=== PATIENT | male | born 1965 | race Caucasian/White ===

== ENCOUNTER 2019-03-22 17:38 | Inpatient (IN) ==
[2019-03-22] MEDS ORDERED: IOPAMIDOL 100 ML BOTTLE IV ONE (17:39)
[2019-03-22] MEDS ORDERED: ONDANSETRON 4 MG/2 ML VIAL IV ONE (18:55)
[2019-03-22] MEDS ORDERED: 0.9 % SODIUM CHLORIDE 1,000 ML IV ONE (18:55)
--- NOTE | 2019-03-22 18:58 | Emergency Department Note ---
Abdominal Pain HPI - General Chief Complaint: Abdominal Pain Stated Complaint: Right upper Quad Pain Time Seen by Provider: 03/22/19 18:51 Mode of arrival: ambulatory - History of Present Illness HPI Narrative: Patient is a 53-year-old male comes into the emergency department this evening with a complaint of right upper quadrant pain that began yesterday and slowly has increased in intensity. He describes the pain in the right upper quadrant is tight and pain is aggravated with palpation and when he gets the hiccups. He reports that he felt warm at home but does not think that he had any fevers. He did have some nausea and vomited once last night. The pain started getting worse throughout the day so he decided to come in the emergency department. He denies any constipation, diarrhea, melena, or hematochezia. He has not had any urinary frequency, urgency, dysuria, or hesitancy. Has not had any chest pain, shortness breath, or difficulty breathing. - Related Data Previous Rx's Medication Instructions Recorded Acyclovir [Zovirax] 800 mg PO 5XD #50 ml 02/17/15 Pramoxine HCl/Calamine [Calamine 177 ml TP QIDP PRN #1 vial 02/17/15 Medicated Lotion] oxyCODONE HCL/ACETAMINOPHEN 1 each PO QIDP PRN #30 tablet 02/17/15 [Percocet 5-325 mg Tablet] Allergies Allergy/AdvReac Type Severity Reaction Status Date / Time No Known Drug Allergies Allergy Verified 03/22/19 17:42 Review of Systems All systems ED: reviewed and negative except as stated. Abdominal Pain PMH - Past Medical History Medical history: Reports: no medical history - Social History Smoking status: Current every day smoker Physical Exam Limitations: no limitations General appearance: alert, in no apparent distress Head: atraumatic, normocephalic Eye: Present: normal appearance, PERRL, EOMI. Absent: scleral icterus, conjunctival injection ENT: Present: normal oropharynx, mucous membranes moist Neck: Present: trachea midline. Absent: lymphadenopathy, thyromegaly Chest: Present: normal inspection, symmetric chest wall rise. Absent: tenderness Respiratory: Present: normal lung sounds bilaterally. Absent: respiratory distress, rales/crackles, wheezes, stridor, accessory muscle use, prolonged expiratory phase Cardiovascular: Present: regular rate, normal rhythm. Absent: systolic murmur, diastolic murmur Abdominal: Present: soft, tenderness (right upper quadrant), normal bowel sounds, Bai's sign. Absent: distention, guarding, rebound, rigidity, hernia Extremities: Present: normal inspection, full ROM. Absent: pedal edema, pretibial edema, calf tenderness Back: Absent: CVA tenderness (R), CVA tenderness (L), spinous process tenderness Neurological: Present: alert, oriented X3 Psychiatric: Present: normal affect, normal mood Skin: Present: warm, dry, intact, normal color Course - Reevaluation(s) Time: 22:08 (Patient has elevated white count and proceeded with CT scan of abdomen for further evaluation with the pain in the right lower quadrant to rule out appendicitis. Patient received a liter of normal saline and morphine for pain and ondansetron for nausea. He is resting comfortably at this time. Dr. Castillo will assume care 2200 due to shift change.) Vital Signs Temperature 97.6 F 03/22/19 17:39 Pulse Rate 116 H 03/22/19 17:39 Respiratory Rate 20 03/22/19 17:39 Blood Pressure 125/91 03/22/19 17:39 Pulse Oximetry (%) 96 03/22/19 17:39 Temperature 97.6 F 03/22/19 17:39 Pulse Rate 116 H 03/22/19 17:39 Respiratory Rate 20 03/22/19 17:39 Blood Pressure 125/91 03/22/19 17:39 Pulse Oximetry (%) 96 03/22/19 17:39 Abdominal Pain - Lab Data Result diagrams: 03/22/19 19:14 03/22/19 19:14 Lab Results 03/22/19 03/22/19 Range/Units 19:14 19:14 WBC 14.8 H (4.5-11.0) K/mcL RBC 5.69 (4.50-5.90) M/mcL Hgb 17.3 H (13.5-16.5) g/dL Hct 52.5 (41.0-55.0) % MCV 92.3 (80.0-100.0) fL MCH 30.5 (26.0-34.0) pg MCHC 33.0 (31.0-36.0) g/dL RDW 12.8 (11.5-14.5) % Plt Count 322 (140-440) K/mcL MPV 8.0 (7.4-10.4) fL Gran % 90.8 H (38.0-78.0) % Lymph % (Auto) 4.5 L (15.5-49.0) % [place] % (Auto) 4.4 (1.0-12.0) % Eos % (Auto) 0 (0.0-7.0) % Baso % (Auto) 0.3 (0.0-2.0) % Gran # 13.4 H (1.8-8.0) K/mcL Lymph # (Auto) 0.7 L (1.5-4.8) K/mcL [place] # (Auto) 0.7 (0.1-0.9) K/mcL Eos # (Auto) 0 (0.0-0.7) K/mcL Baso # (Auto) 0 (0.0-0.3) K/mcL Sodium 136 (133-145) mmol/L Potassium 4.0 (3.3-5.1) mmol/L Chloride 92 L (96-108) mmol/L Carbon Dioxide 25 (22-30) mmol/L Anion Gap 19.0 H (8-16) BUN 14 (6-20) mg/dl Creatinine 1.2 (0.7-1.2) mg/dl GFR Calculation 68 Glucose 187 H (70-105) mg/dL Calcium 9.7 (8.6-10.4) mg/dl Total Bilirubin 0.5 (0.0-1.0) mg/dL AST 13 (0-37) U/l ALT 16 (0-40) U/l Alkaline Phosphatase 98 (39-117) U/L Total Protein 8.5 H (5.9-8.4) gm/dL Albumin 4.7 (3.2-5.2) gm/dL Globulin 3.8 H (2.2-3.7) gm/dL Albumin/Globulin Ratio 1.2 (1.0-2.3) Lipase 17 (7-60) U/L Disposition Pt seen by PRESCHOOL LEAD TEACHER/PA only: No (Dr. Castillo) Clinical Impression: Abdominal pain Disposition: Still a Patient
[2019-03-22 20:09] LABS: Basophils # (Auto) 0 K/mcL (0.0-0.3); Basophils % (Auto) 0.3 % (0.0-2.0); Eosinophils # (Auto) 0 K/mcL (0.0-0.7); Eosinophils % (Auto) 0 % (0.0-7.0); Granulocytes % (Auto) 90.8 % (38.0-78.0); Hematocrit 52.5 % (41.0-55.0); Hemoglobin 17.3 g/dL (13.5-16.5); Lymphocytes # (Auto) 0.7 K/mcL (1.5-4.8); Lymphocytes % (Auto) 4.5 % (15.5-49.0); Mean Cell Volume 92.3 fL (80.0-100.0); Monocytes # (Auto) 0.7 K/mcL (0.1-0.9); Monocytes % (Auto) 4.4 % (1.0-12.0); Platelet Count 322 K/mcL (140-440); RBC 5.69 M/mcL (4.50-5.90); Red Cell Distribution Width 12.8 % (11.5-14.5); WBC 14.8 K/mcL (4.5-11.0)
[2019-03-22 20:31] LABS: ALT/SGPT 16 U/l (0-40); AST/SGOT 13 U/l (0-37); Albumin 4.7 gm/dL (3.2-5.2); Albumin/Globulin Ratio 1.2 (1.0-2.3); Alkaline Phosphatase 98 U/L (39-117); Bilirubin,Total 0.5 mg/dL (0.0-1.0); Blood Urea Nitrogen 14 mg/dl (6-20); Calcium 9.7 mg/dl (8.6-10.4); Carbon Dioxide 25 mmol/L (22-30); Globulin 3.8 gm/dL (2.2-3.7); Glomerular Filtration Rate 68; Glucose 187 mg/dL (70-105)
[2019-03-22 20:42] LABS: Chloride 92 mmol/L (96-108)
[2019-03-22] MEDS ORDERED: PIPERACILLIN SODIUM/TAZOBACTAM 3.375 GM in DEXTROSE 5% IN WATER 50 ML IV ONE (22:24)
[2019-03-22] MEDS ORDERED: LACTATED RINGERS 1,000 ML IV ONE (22:58)
[2019-03-23] MEDS: 0.9 % SODIUM CHLORIDE 1,000 ML IV SCH ×3 (00:35→23:44)
[2019-03-23] MEDS ORDERED: HYDROmorphone 2 MG/ML VIAL IV PRN ×2 (01:14→14:16)
[2019-03-23] MEDS ORDERED: PROMETHAZINE 25 MG/ML VIAL IV PRN ×2 (01:15→15:37)
[2019-03-23] MEDS ORDERED: ACETAMINOPHEN 1,000 MG/100 ML BOTTLE IV ONE ×3 (01:43→14:16)
[2019-03-23] MEDS: ACETAMINOPHEN 1,000 MG/100 ML BOTTLE IV SCH ×4 (02:04→23:45)
[2019-03-23] MEDS: PIPERACILLIN SODIUM/TAZOBACTAM 3.375 GM in DEXTROSE 5% IN WATER 50 ML IV SCH ×4 (04:47→20:52)
[2019-03-23] MEDS ORDERED: SCOPOLAMINE 1 PATCH PATCH TOPICAL PRN ×2 (06:41→08:00)
[2019-03-23] MEDS ORDERED: IPRATROPIUM/ALBUTEROL 3 ML AMPUL.NEB NEB PRN ×3 (06:41→14:16)
--- NOTE | 2019-03-23 07:35 | Emergency Department Note ---
Abdominal Pain HPI - General Chief Complaint: Abdominal Pain Stated Complaint: Right upper Quad Pain Time Seen by Provider: 03/22/19 18:51 Mode of arrival: ambulatory Limitations: no limitations - Related Data Home Medications Medication Instructions Recorded Confirmed No Known Home Meds 03/22/19 03/22/19 Allergies Allergy/AdvReac Type Severity Reaction Status Date / Time No Known Drug Allergies Allergy Verified 03/22/19 17:42 Abdominal Pain PMH - Past Medical History Medical history: Reports: no medical history - Social History Smoking status: Light tobacco smoker Physical Exam Limitations: no limitations General appearance: alert, in no apparent distress Course Vital Signs Temperature 97.6 F 03/22/19 17:39 Pulse Rate 116 H 03/22/19 17:39 Respiratory Rate 20 03/22/19 17:39 Blood Pressure 125/91 03/22/19 17:39 Pulse Oximetry (%) 96 03/22/19 17:39 Temperature 97.7 F 03/23/19 07:08 Pulse Rate 95 H 03/23/19 03:30 Respiratory Rate 20 03/23/19 07:08 Blood Pressure 126/84 03/23/19 07:08 Pulse Oximetry (%) 97 03/23/19 07:08 Abdominal Pain - MDM Narrative Medical decision making narrative: This patient CT scan showed a perforated appendix and he was admitted to the hospital for Dr. Rice. We gave him Zosyn IV. - Lab Data Lab results reviewed: Yes I reviewed the patient's lab results. Result diagrams: 03/22/19 19:14 03/22/19 19:14 Lab Results 03/22/19 03/22/19 Range/Units 19:14 19:14 WBC 14.8 H (4.5-11.0) K/mcL RBC 5.69 (4.50-5.90) M/mcL Hgb 17.3 H (13.5-16.5) g/dL Hct 52.5 (41.0-55.0) % MCV 92.3 (80.0-100.0) fL MCH 30.5 (26.0-34.0) pg MCHC 33.0 (31.0-36.0) g/dL RDW 12.8 (11.5-14.5) % Plt Count 322 (140-440) K/mcL MPV 8.0 (7.4-10.4) fL Gran % 90.8 H (38.0-78.0) % Lymph % (Auto) 4.5 L (15.5-49.0) % [place] % (Auto) 4.4 (1.0-12.0) % Eos % (Auto) 0 (0.0-7.0) % Baso % (Auto) 0.3 (0.0-2.0) % Gran # 13.4 H (1.8-8.0) K/mcL Lymph # (Auto) 0.7 L (1.5-4.8) K/mcL [place] # (Auto) 0.7 (0.1-0.9) K/mcL Eos # (Auto) 0 (0.0-0.7) K/mcL Baso # (Auto) 0 (0.0-0.3) K/mcL Sodium 136 (133-145) mmol/L Potassium 4.0 (3.3-5.1) mmol/L Chloride 92 L (96-108) mmol/L Carbon Dioxide 25 (22-30) mmol/L Anion Gap 19.0 H (8-16) BUN 14 (6-20) mg/dl Creatinine 1.2 (0.7-1.2) mg/dl GFR Calculation 68 Glucose 187 H (70-105) mg/dL Calcium 9.7 (8.6-10.4) mg/dl Total Bilirubin 0.5 (0.0-1.0) mg/dL AST 13 (0-37) U/l ALT 16 (0-40) U/l Alkaline Phosphatase 98 (39-117) U/L Total Protein 8.5 H (5.9-8.4) gm/dL Albumin 4.7 (3.2-5.2) gm/dL Globulin 3.8 H (2.2-3.7) gm/dL Albumin/Globulin Ratio 1.2 (1.0-2.3) Lipase 17 (7-60) U/L - Radiology Data Radiology results reviewed: Yes I reviewed the patient's radiology results. Disposition Pt seen by YOUTH ADVOCATE/PA only: No Clinical Impression: Abdominal pain, Acute appendicitis Disposition: Xfer As Inpt ([facility])
--- NOTE | 2019-03-23 08:49 | Cat Scan Report ---
History: Right-sided abdominal pain with leukocytosis TECHNIQUE: The patient was imaged following oral and intravenous contrast from the diaphragm to the symphysis pubis. Sagittal and coronal reformats were created. The radiation exposure was limited using dose reduction technology. FINDINGS: There is dependent atelectasis posteriorly in both lung bases. Small hiatus hernia is present. The liver and spleen are normal in size and homogeneous. Gallbladder is partially contracted but appears normal and the bile ducts are nondilated. The pancreas and adrenals are normal. There are small cortical scars filled with fat posteriorly in the upper poles of both kidneys, left larger than right. There is no evidence renal mass, calculus, hydronephrosis or acute pyelonephritis. The aorta is normal in caliber. Small amount calcified plaque is present in the distal aorta. The appendix is severely distended and inflamed. Measures up to 2.2 cm transverse dimension and contains fecal material. The wall is thickened and there is severe inflammation surrounding the appendix. The inflammation extends to the adjacent posterior wall of the cecum and ascending colon and to the terminal ileum. This is not causing bowel obstruction. However, there has been perforation. Small bubbles of free intraperitoneal air are present and there is free fluid deep in the pelvis. No abscess has developed. There are several noninflamed diverticula in the descending and sigmoid colon but without evidence of acute diverticulitis. Urinary bladder is incompletely distended. There is mild uniform thickening of the wall of the bladder, which may be related to incomplete distention. The prostate is mildly enlarged. IMPRESSION: Acute appendicitis with perforation Interpreted and Authenticated by: Gabriel Travis 03/23/19
[2019-03-23 08:50] LABS: INR 1.2 (0.9-1.1); Prothrombin Time 15.4 sec (11.9-14.5)
[2019-03-23 08:50] LABS: Appearance,Urine CLEAR; Bacteria,Urine 0 /hpf (0); Bilirubin,Urine NEG (NEG); Color,Urine YELLOW; Culture Indicated,Urine NO; Glucose,Urine (UA) NEGATIVE (NEG); Ketones,Urine NEG (NEG); Leukocyte Esterase,Urine NEG /uL (NEG); Nitrate,Urine NEG (NEG); Protein,Urine 30 mg/dL (NEG); Specific Gravity,Urine 1.034 (1.000-1.035); Urine Blood NEG mg/dL (<0.03); Urine Hyaline Cast 1 /lpf (0-2); Urine RBC 0 /hpf (0-1); Urine Squamous Epithelial Cell < 1 /hpf (0-4); Urine WBC 3 /hpf (0-4); Urobilinogen,Urine NEG (NEG)
--- NOTE | 2019-03-23 08:57 | XRay Report ---
HISTORY: Preop for acute appendicitis FINDINGS: Thin band of discoid atelectasis is present above the right diaphragm. Lung volumes are relatively small. No free intra-abdominal air is detected.. The heart, mediastinum, lana and pleura are normal. IMPRESSION: Minor discoid atelectasis at the right lung base Interpreted and Authenticated by: Gabriel Travis 03/23/19
--- NOTE | 2019-03-23 09:08 | General Surg History&Physical ---
History of Present Illness Patient information: Note initiated : 03/23/19 at 9:06 am Service Date, if different from initiated Date: [] Patient: Cassius Haywood a 53 y/o M admitted on 03/22/19 for Right upper Quad Pain. Chief Complaint: [] HPI: Mr. Haywood is a 53 year old M admitted with acute appendicitis. The patient states that he developed a right lower quadrant pain on Tuesday. The pain persisted for a few hours and advancing to improve. Over the next couple days he had increasing pain over his lower abdomen with associated nausea and vomiting. On yesterday the pain became much worse and he finally sought attention in the emergency room. He was noted to have leukocytosis of over 14,[address] of the abdomen showed a dilated appendix with her appendiceal tissue fluid and free air compatible with probable perforated limits. He's been admitted and started on antibiotics and will have appendectomy later today. Review of Systems All systems PM: reviewed and no additional remarkable complaints except as stated (negative except as noted in the history present illness) Past History Past medical history: No chronic medical illnesses Past surgical history: No prior operative procedures Past family history: . Mother age 81 due to complications of stroke. Father alive age 83 with prostate cancer and melanoma. No siblings Past social history: Single Prior history of cigar smoking History of alcohol use. History of marijuana use Medications and Allergies Home Medications Medication Instructions Recorded Confirmed Type No Known Home Meds 03/22/19 03/22/19 History Allergies Allergy/AdvReac Type Severity Reaction Status Date / Time No Known Drug Allergies Allergy Verified 03/22/19 17:42 Exam Temp Pulse Resp BP Pulse Ox 97.7 F 95 H 20 126/84 97 03/23/19 07:08 03/23/19 03:30 03/23/19 07:08 03/23/19 07:08 03/23/19 07:08 - General physical appearance well developed, well nourished, no distress, moderate pain - Eyes PERRL, normal ocular movement - ENT normal pinna, normal nares, normal mucosa, no hearing loss, no congestion, poor longterm - Head Head exam IM: Present: atraumatic, normocephalic - Neck no masses, no bruits, trachea midline, no lymphadenopathy, no venous distension - Cardiovascular Cardiovascular exam IM: Present: normal rate and rhythm - Respiratory normal expansion, normal respiratory effort, clear to percussion, clear to auscultation - Abdomen Abdomen: Present: soft, tender, bowel sounds (good active bowel sounds), distended (mild abdominal distention; tenderness with guarding in right lower quadrant) Hernia: Present: none - Genitourinary Present: normal penis with no external lesions - Integumentary Present: no rash, no growths, no abnormal pigmentation - Neurologic Present: normal coordination, normal sensation - Musculoskeletal Present: normal gait, normal posture - Psychiatric Present: oriented to time, oriented to person, oriented to place, speech is normal, memory intact Assessment and Plan (1) Acute appendicitis with perforation and localized peritonitis Patient is counseled for laparoscopic appendectomy to be done later this morning. He is already on antibiotics and is adequately covered. Anticipate 2- 3 days of hospital stay. Status: Acute
[2019-03-23] MEDS ORDERED: ONDANSETRON 4 MG/2 ML VIAL IV ONE (13:11)
[2019-03-23] MEDS ORDERED: DEXAMETHASONE 10 MG/ML VIAL IV ONE (13:11)
[2019-03-23] MEDS ORDERED: SUCCINYLCHOLINE 20 MG/ML ML IV ONE (13:11)
[2019-03-23] MEDS ORDERED: GLYCOPYRROLATE 0.2 MG/ML VIAL IV ONE (13:11)
[2019-03-23] MEDS ORDERED: fentaNYL 100 MCG/2 ML VIAL IV ONE (13:11)
[2019-03-23] MEDS ORDERED: MIDAZOLAM 2 MG/2 ML VIAL IV ONE (13:11)
[2019-03-23] MEDS ORDERED: PROPOFOL 200 MG/20 ML VIAL IV ONE (13:11)
[2019-03-23] MEDS ORDERED: KETAMINE 100 MG/ML ML IV ONE (13:11)
[2019-03-23] MEDS ORDERED: ROCURONIUM 10 MG/ML ML IV ONE (13:11)
[2019-03-23] MEDS ORDERED: NEOSTIGMINE 1 MG/ML VIAL IV ONE (13:11)
[2019-03-23] MEDS ORDERED: LIDOCAINE HCL/PF 100 MG/5 ML SYRINGE IV ONE (13:11)
[2019-03-23] MEDS ORDERED: MEPERIDINE 25 MG/ML SYRINGE IV PRN (14:16)
[2019-03-23] MEDS ORDERED: PROMETHAZINE 25 MG/ML VIAL IM PRN (14:16)
[2019-03-23] MEDS ORDERED: KETOROLAC 30 MG/ML VIAL IV PRN (14:16)
[2019-03-23] MEDS ORDERED: fentaNYL 100 MCG/2 ML VIAL IV PRN (14:16)
[2019-03-23] MEDS ORDERED: MEPERIDINE 50 MG/ML INJECTION IM PRN (14:16)
[2019-03-23] MEDS ORDERED: LACTATED RINGERS 1,000 ML IV SCH (14:30)
--- NOTE | 2019-03-23 14:55 | Brief Operative Note ---
Date of procedure: 03/23/19 Pre-op diagnosis: acute perforated appendicitis Post-op diagnosis: other (acute perforated appendicitis with abscess) Procedure: laparoscopic appendectomy with drainage of pelvic abscess Grafts/Implants: No (ed drain x2) Anesthesia: GETA Findings: abscess perforates at tip and at base with periappendiceal abscess and purulent fluid in pelvis Complications: none Surgeon: Nancy Rice Specimens Removed/Pathology: other (appendix) Condition: stable Disposition: PACU
[2019-03-24] MEDS: ACETAMINOPHEN 1,000 MG/100 ML BOTTLE IV SCH ×5 (00:16→23:27)
[2019-03-24] MEDS: PIPERACILLIN SODIUM/TAZOBACTAM 3.375 GM in DEXTROSE 5% IN WATER 50 ML IV SCH ×4 (01:23→19:00)
[2019-03-24] MEDS: 0.9 % SODIUM CHLORIDE 1,000 ML IV SCH ×3 (03:34→15:52)
[2019-03-24] MEDS: HYDROmorphone 2 MG/ML VIAL IV PRN ×3 (04:59→18:19)
[2019-03-24 06:37] LABS: Basophils # (Auto) 0.1 K/mcL (0.0-0.3); Basophils % (Auto) 0.4 % (0.0-2.0); Eosinophils # (Auto) 0 K/mcL (0.0-0.7); Eosinophils % (Auto) 0.1 % (0.0-7.0); Granulocytes % (Auto) 91.3 % (38.0-78.0); Hematocrit 40.8 % (41.0-55.0); Hemoglobin 14.1 g/dL (13.5-16.5); Lymphocytes # (Auto) 0.9 K/mcL (1.5-4.8); Lymphocytes % (Auto) 5.3 % (15.5-49.0); Mean Cell Volume 89.8 fL (80.0-100.0); Mean Corpuscular HGB Conc 34.5 g/dL (31.0-36.0); Mean Platelet Volume 8.4 fL (7.4-10.4); Monocytes # (Auto) 0.5 K/mcL (0.1-0.9); Monocytes % (Auto) 2.9 % (1.0-12.0); Platelet Count 274 K/mcL (140-440); RBC 4.54 M/mcL (4.50-5.90); Red Cell Distribution Width 12.3 % (11.5-14.5); WBC 16.2 K/mcL (4.5-11.0)
[2019-03-24 06:40] LABS: ALT/SGPT 13 U/l (0-40); AST/SGOT 13 U/l (0-37); Albumin 3.4 gm/dL (3.2-5.2); Alkaline Phosphatase 65 U/L (39-117); Bilirubin,Direct < 0.2 mg/dL (0.0-0.3); Bilirubin,Total 0.4 mg/dL (0.0-1.0); Blood Urea Nitrogen 9 mg/dl (6-20); Calcium 8.5 mg/dl (8.6-10.4); Carbon Dioxide 26 mmol/L (22-30); Chloride 96 mmol/L (96-108); Glomerular Filtration Rate 96; Glucose 133 mg/dL (70-105); Lactate Dehydrogenase 128 U/L (94-250); Triglycerides 119 mg/dl (<150); Uric Acid 2.2 mg/dL (2.5-8.0)
[2019-03-24 06:41] LABS: Albumin/Globulin Ratio 1.1 (1.0-2.3); Globulin 3.1 gm/dL (2.2-3.7); Phosphorous 1.9 mg/dL (2.7-4.5)
[2019-03-24] MEDS: METOCLOPRAMIDE 10 MG/2 ML VIAL IV SCH ×3 (11:47→23:27)
[2019-03-24] MEDS: POTASSIUM PHOSPHATE 40 MEQ in DEXTROSE 5% IN WATER 500 ML IV SCH ×2 (12:00→16:59)
--- NOTE | 2019-03-24 12:37 | General Surgery Progress Note ---
Subjective Patient reports: feels better, pain is less, tolerating a regular diet, flatus, no bowel movement, afebrile, other (patient still has hiccups) Narrative: Note initiated : 03/24/19 at 12:35 pm Service Date, if different from initiated Date: [] Patient: Cassius Haywood 53 y/o M admitted on 03/23/19 for Right upper Quad Pain. Chief Complaint: [patient is clinically improved. He has less discomfort and is afebrile. He has large volume serosanguineous drainage in both JPs. White blood count 16.2, hemoglobin 14.1, hematocrit 40.8, phosphorus 1.9.] Objective Temp Pulse Resp BP Pulse Ox 98.1 F 75 20 135/86 96 03/24/19 08:00 03/24/19 08:00 03/24/19 08:00 03/24/19 08:00 03/24/19 08:00 - Additional Data Intake & Output - Last 24 hours: Intake & Output 03/22/19 03/23/19 03/24/19 03/25/19 05:59 05:59 05:59 05:59 Intake Total 2078 6320 150 Output Total 500 3144 725 Balance 1578 3176 -575 Weight 175 lb 8 oz 177 lb 8 oz - General physical appearance well developed, well nourished, moderate distress, moderate pain - Eyes PERRL, normal ocular movement - ENT normal pinna, normal nares, normal mucosa, no hearing loss, no congestion - Neck no masses, no bruits, trachea midline, no lymphadenopathy, no venous distension - Respiratory normal expansion, normal respiratory effort, clear to auscultation - Cardiovascular Cardiovascular exam: Present: normal rate and rhythm (assessment possible perforated perforated appendectomy and possible irritation in that the Reglan will get things discomfort) - Abdomen tender ( moderate tenderness around port sites; good active bowel sounds), bowel sounds (present), surgical scars (none), masses (none) - Integumentary no rash, no growths, no abnormal pigmentation - Neurologic normal coordination, normal sensation - Musculoskeletal normal gait, normal posture - Psychiatric oriented to time, oriented to person, oriented to place, speech is normal, memory intact - Labs 03/24/19 04:55 03/24/19 04:55 Diabetes panel 03/24/19 Range/Units 04:55 Sodium 134 (133-145) mmol/L Potassium 3.6 (3.3-5.1) mmol/L Chloride 96 (96-108) mmol/L Carbon Dioxide 26 (22-30) mmol/L BUN 9 (6-20) mg/dl Creatinine 0.9 (0.7-1.2) mg/dl Glucose 133 H (70-105) mg/dL Calcium 8.5 L (8.6-10.4) mg/dl AST 13 (0-37) U/l ALT 13 (0-40) U/l Alkaline Phosphatase 65 (39-117) U/L Total Protein 6.5 (5.9-8.4) gm/dL Albumin 3.4 (3.2-5.2) gm/dL Triglycerides 119 (<150) mg/dl Calcium panel 03/24/19 Range/Units 04:55 Calcium 8.5 L (8.6-10.4) mg/dl Phosphorus 1.9 L (2.7-4.5) mg/dL Albumin 3.4 (3.2-5.2) gm/dL Pituitary panel 03/24/19 Range/Units 04:55 Sodium 134 (133-145) mmol/L Potassium 3.6 (3.3-5.1) mmol/L Chloride 96 (96-108) mmol/L Carbon Dioxide 26 (22-30) mmol/L BUN 9 (6-20) mg/dl Creatinine 0.9 (0.7-1.2) mg/dl Glucose 133 H (70-105) mg/dL Calcium 8.5 L (8.6-10.4) mg/dl Adrenal panel 03/24/19 Range/Units 04:55 Sodium 134 (133-145) mmol/L Potassium 3.6 (3.3-5.1) mmol/L Chloride 96 (96-108) mmol/L Carbon Dioxide 26 (22-30) mmol/L BUN 9 (6-20) mg/dl Creatinine 0.9 (0.7-1.2) mg/dl Glucose 133 H (70-105) mg/dL Calcium 8.5 L (8.6-10.4) mg/dl Total Bilirubin 0.4 (0.0-1.0) mg/dL AST 13 (0-37) U/l ALT 13 (0-40) U/l Alkaline Phosphatase 65 (39-117) U/L Total Protein 6.5 (5.9-8.4) gm/dL Albumin 3.4 (3.2-5.2) gm/dL Assessment and Plan (1) Acute appendicitis with perforation and localized peritonitis Status: Acute Assessment and plan: Patient is clinically improved. He was given Reglan 10 mg IV every 6 hours for his hiccups. He'll be continued on antibiotics. Current Visit: Yes - Time Spent With Patient Total time spent is greater than 50% in coordination of care (as documented) at patient's floor/unit and/or counseling patient:
[2019-03-25] MEDS: HYDROmorphone 2 MG/ML VIAL IV PRN ×4 (00:09→20:50)
[2019-03-25] MEDS: PIPERACILLIN SODIUM/TAZOBACTAM 3.375 GM in DEXTROSE 5% IN WATER 50 ML IV SCH ×5 (00:11→23:11)
[2019-03-25] MEDS: 0.9 % SODIUM CHLORIDE 1,000 ML IV SCH ×3 (04:01→23:51)
[2019-03-25] MEDS: ACETAMINOPHEN 1,000 MG/100 ML BOTTLE IV SCH ×4 (05:22→23:12)
[2019-03-25] MEDS: METOCLOPRAMIDE 10 MG/2 ML VIAL IV SCH ×4 (05:22→23:11)
[2019-03-25 06:16] LABS: Basophils # (Auto) 0.1 K/mcL (0.0-0.3); Basophils % (Auto) 0.6 % (0.0-2.0); Eosinophils # (Auto) 0.1 K/mcL (0.0-0.7); Eosinophils % (Auto) 0.3 % (0.0-7.0); Granulocytes % (Auto) 91.3 % (38.0-78.0); Hematocrit 43.5 % (41.0-55.0); Hemoglobin 15.2 g/dL (13.5-16.5); Lymphocytes # (Auto) 1.2 K/mcL (1.5-4.8); Lymphocytes % (Auto) 6.8 % (15.5-49.0); Mean Cell Volume 89.5 fL (80.0-100.0); Mean Corpuscular HGB Conc 34.8 g/dL (31.0-36.0); Monocytes # (Auto) 0.2 K/mcL (0.1-0.9); Platelet Count 353 K/mcL (140-440); RBC 4.86 M/mcL (4.50-5.90); Red Cell Distribution Width 12.2 % (11.5-14.5); WBC 17.1 K/mcL (4.5-11.0)
[2019-03-25 06:43] LABS: ALT/SGPT 15 U/l (0-40); AST/SGOT 12 U/l (0-37); Albumin 2.9 gm/dL (3.2-5.2); Albumin/Globulin Ratio 0.9 (1.0-2.3); Alkaline Phosphatase 76 U/L (39-117); Bilirubin,Direct < 0.2 mg/dL (0.0-0.3); Bilirubin,Total 0.3 mg/dL (0.0-1.0); Blood Urea Nitrogen 10 mg/dl (6-20); Calcium 8.4 mg/dl (8.6-10.4); Carbon Dioxide 25 mmol/L (22-30); Globulin 3.4 gm/dL (2.2-3.7); Glomerular Filtration Rate 107; Glucose 142 mg/dL (70-105); Lactate Dehydrogenase 144 U/L (94-250); Triglycerides 187 mg/dl (<150)
[2019-03-25 06:46] LABS: Chloride 95 mmol/L (96-108); Phosphorous 2.1 mg/dL (2.7-4.5); Uric Acid 1.5 mg/dL (2.5-8.0)
--- NOTE | 2019-03-25 15:10 | General Surgery Progress Note ---
Subjective Patient reports: feels better, pain is less, tolerating liquids well, flatus, no bowel movement, afebrile Narrative: Note initiated : 03/25/19 at 3:08 pm Service Date, if different from initiated Date: [] Patient: Cassius Haywood 53 y/o M admitted on 03/23/19 for Right upper Quad Pain. Chief Complaint patient is improved however he continues to have hiccups. He states that he had partial relief with metoclopramide. He has not had bowel movements so far. His pain is controlled. White blood count 17.1, hemoglobin 15.2.] Objective Temp Pulse Resp BP Pulse Ox 97.7 F 92 H 20 141/94 95 03/25/19 12:00 03/25/19 03:51 03/25/19 12:00 03/25/19 12:00 03/25/19 12:00 - Additional Data Intake & Output - Last 24 hours: Intake & Output 03/23/19 03/24/19 03/25/19 03/26/19 05:59 05:59 05:59 05:59 Intake Total 2078 6320 3978.1818 1300 Output Total 500 3144 2900 280 Balance 1578 3176 1078.1818 1020 Weight 175 lb 8 oz 177 lb 8 oz 177 lb 8 oz 177 lb 8 oz - General physical appearance well developed, well nourished, no distress - Eyes PERRL, normal ocular movement - ENT normal pinna, normal nares, normal mucosa, no hearing loss, no congestion - Neck no masses, no bruits, trachea midline, no lymphadenopathy, no venous distension - Respiratory normal expansion, normal respiratory effort, clear to auscultation - Cardiovascular Cardiovascular exam: Present: normal rate and rhythm, RRR, +S1, +S2. Absent: bradycardia, JVD, tachycardia - Abdomen distended (abdomen is mildly distended; he has good active bowel sounds; JEFF drainage is serous without purulence) - Integumentary no rash, no growths, no abnormal pigmentation - Neurologic normal coordination, normal sensation - Musculoskeletal normal gait, normal posture - Psychiatric oriented to time, oriented to person, oriented to place, speech is normal, memory intact - Labs 03/25/19 05:03 03/25/19 05:03 Diabetes panel 03/25/19 Range/Units 05:03 Sodium 131 L (133-145) mmol/L Potassium 3.5 (3.3-5.1) mmol/L Chloride 95 L (96-108) mmol/L Carbon Dioxide 25 (22-30) mmol/L BUN 10 (6-20) mg/dl Creatinine 0.7 (0.7-1.2) mg/dl Glucose 142 H (70-105) mg/dL Calcium 8.4 L (8.6-10.4) mg/dl AST 12 (0-37) U/l ALT 15 (0-40) U/l Alkaline Phosphatase 76 (39-117) U/L Total Protein 6.3 (5.9-8.4) gm/dL Albumin 2.9 L (3.2-5.2) gm/dL Triglycerides 187 H (<150) mg/dl Calcium panel 03/25/19 Range/Units 05:03 Calcium 8.4 L (8.6-10.4) mg/dl Phosphorus 2.1 L (2.7-4.5) mg/dL Albumin 2.9 L (3.2-5.2) gm/dL Pituitary panel 03/25/19 Range/Units 05:03 Sodium 131 L (133-145) mmol/L Potassium 3.5 (3.3-5.1) mmol/L Chloride 95 L (96-108) mmol/L Carbon Dioxide 25 (22-30) mmol/L BUN 10 (6-20) mg/dl Creatinine 0.7 (0.7-1.2) mg/dl Glucose 142 H (70-105) mg/dL Calcium 8.4 L (8.6-10.4) mg/dl Adrenal panel 03/25/19 Range/Units 05:03 Sodium 131 L (133-145) mmol/L Potassium 3.5 (3.3-5.1) mmol/L Chloride 95 L (96-108) mmol/L Carbon Dioxide 25 (22-30) mmol/L BUN 10 (6-20) mg/dl Creatinine 0.7 (0.7-1.2) mg/dl Glucose 142 H (70-105) mg/dL Calcium 8.4 L (8.6-10.4) mg/dl Total Bilirubin 0.3 (0.0-1.0) mg/dL AST 12 (0-37) U/l ALT 15 (0-40) U/l Alkaline Phosphatase 76 (39-117) U/L Total Protein 6.3 (5.9-8.4) gm/dL Albumin 2.9 L (3.2-5.2) gm/dL Assessment and Plan (1) Acute appendicitis with perforation and localized peritonitis Status: Acute Assessment and plan: Patient is clinically improved. He was given Reglan 10 mg IV every 6 hours for his hiccups. He'll be continued on antibiotics. MiraLAX 17 g in 8 ounces of liquid 3 times daily Current Visit: Yes - Time Spent With Patient Total time spent is greater than 50% in coordination of care (as documented) at patient's floor/unit and/or counseling patient:
[2019-03-26 05:45] LABS: ALT/SGPT 17 U/l (0-40); AST/SGOT 15 U/l (0-37); Albumin 2.4 gm/dL (3.2-5.2); Albumin/Globulin Ratio 0.8 (1.0-2.3); Alkaline Phosphatase 110 U/L (39-117); Bilirubin,Direct < 0.2 mg/dL (0.0-0.3); Bilirubin,Total 0.4 mg/dL (0.0-1.0); Blood Urea Nitrogen 17 mg/dl (6-20); Carbon Dioxide 23 mmol/L (22-30); Chloride 98 mmol/L (96-108); Globulin 3.1 gm/dL (2.2-3.7); Glucose 117 mg/dL (70-105); Lactate Dehydrogenase 208 U/L (94-250); Triglycerides 143 mg/dl (<150); Uric Acid 1.6 mg/dL (2.5-8.0)
[2019-03-26] MEDS: PIPERACILLIN SODIUM/TAZOBACTAM 3.375 GM in DEXTROSE 5% IN WATER 50 ML IV SCH ×4 (05:49→23:57)
[2019-03-26 05:50] LABS: Glomerular Filtration Rate 123; Phosphorous 2.1 mg/dL (2.7-4.5)
[2019-03-26] MEDS: ACETAMINOPHEN 1,000 MG/100 ML BOTTLE IV SCH ×2 (05:50→12:38)
[2019-03-26] MEDS: METOCLOPRAMIDE 10 MG/2 ML VIAL IV SCH ×4 (05:50→23:55)
[2019-03-26 06:07] LABS: Basophils # (Auto) 0 K/mcL (0.0-0.3); Basophils % (Auto) 0 % (0.0-2.0); Eosinophils # (Auto) 0 K/mcL (0.0-0.7); Eosinophils % (Auto) 0.2 % (0.0-7.0); Granulocytes % (Auto) 93.3 % (38.0-78.0); Hematocrit 37.4 % (41.0-55.0); Hemoglobin 12.5 g/dL (13.5-16.5); Lymphocytes # (Auto) 1.4 K/mcL (1.5-4.8); Lymphocytes % (Auto) 5.7 % (15.5-49.0); Mean Cell Volume 90.4 fL (80.0-100.0); Mean Corpuscular HGB Conc 33.6 g/dL (31.0-36.0); Mean Platelet Volume 7.9 fL (7.4-10.4); Monocytes # (Auto) 0.2 K/mcL (0.1-0.9); Monocytes % (Auto) 0.8 % (1.0-12.0); Platelet Count 404 K/mcL (140-440); RBC 4.13 M/mcL (4.50-5.90); Red Cell Distribution Width 12.4 % (11.5-14.5); WBC 23.7 K/mcL (4.5-11.0)
[2019-03-26] MEDS: POLYETHYLENE GLYCOL 3350 17 GM PACKET PO SCH (07:29)
--- NOTE | 2019-03-26 12:33 | Surgical Pathology Report ---
HISTOLOGY SPECIMEN MICROSCOPIC DIAGNOSIS APPENDIX, APPENDECTOMY: -- ACUTE APPENDICITIS WITH PERFORATION AND ACUTE SEROSITIS. (CHUCK:rich) PROCEDURAL IMPRESSION Acute appendicitis. GROSS DESCRIPTION Received in formalin labeled appendix, is an appendix that appears disrupted. The appendix measures 9 cm in length and up to 2 cm greatest diameter. The serosal surface is noteable for a partial thickness disruption measuring 1 x 0.8 cm. There are areas of possible exudate and attached adipose tissue. The margin is received stapled and is inked black and removed. The appendix is opened to reveal hummel-pink mucosal surface. The wall is up to 0.4 cm in greatest thickness. The distal tip, surgical margin and sales account representative cross sections are submitted in one cassette. (EBD:adj) Electronically Signed by: Karli Barney M.D.
[2019-03-26] MEDS ORDERED: oxyCODONE/APAP 10/325MG TABLET PO PRN (13:00)
[2019-03-26] MEDS: 0.9 % SODIUM CHLORIDE 1,000 ML IV SCH ×2 (14:37→16:05)
--- NOTE | 2019-03-26 14:51 | General Surgery Progress Note ---
Subjective Patient reports: feels better, pain is less, tolerating a regular diet, flatus, bowel movement, afebrile Narrative: Note initiated : 03/26/19 at 2:47 pm Service Date, if different from initiated Date: [] Patient: Cassius Haywood 53 y/o M admitted on 03/23/19 for Right upper Quad Pain. Chief Complaint: [patient is clinically stable. He has had low-grade temperature elevations. He denies nausea and has tolerated diet without difficulty. White blood count 23.7, hemoglobin 12.5, hematocrit 37.4, phospho obed 2.1.] Objective Temp Pulse Resp BP Pulse Ox 98.3 F 112 H 18 139/79 97 03/26/19 12:00 03/26/19 12:00 03/26/19 12:00 03/26/19 12:00 03/26/19 12:00 - Additional Data Intake & Output - Last 24 hours: Intake & Output 03/24/19 03/25/19 03/26/19 03/27/19 05:59 05:59 05:59 05:59 Intake Total 6320 3978.1818 3797 1460 Output Total 3144 2900 1855 730 Balance 3176 1078.1818 1942 730 Weight 177 lb 8 oz 177 lb 8 oz 176 lb 2 oz - General physical appearance well developed, well nourished, no distress - Eyes PERRL, normal ocular movement - ENT normal pinna, normal nares, normal mucosa, no hearing loss, no congestion - Neck no masses, no bruits, trachea midline, no lymphadenopathy, no venous distension - Respiratory normal expansion, normal respiratory effort, clear to auscultation - Cardiovascular Cardiovascular exam: Present: normal rate and rhythm, RRR, +S1, +S2. Absent: JVD, tachycardia - Abdomen tender (mild tenderness around port sites; large volume serous fluid in JEFF drains) - Integumentary no rash, no growths, no abnormal pigmentation - Neurologic normal coordination, normal sensation - Musculoskeletal normal gait, normal posture - Psychiatric oriented to time, oriented to person, oriented to place, speech is normal, memory intact - Labs 03/26/19 04:35 03/26/19 04:35 Diabetes panel 03/26/19 Range/Units 04:35 Sodium 131 L (133-145) mmol/L Potassium 4.0 (3.3-5.1) mmol/L Chloride 98 (96-108) mmol/L Carbon Dioxide 23 (22-30) mmol/L BUN 17 (6-20) mg/dl Creatinine 0.5 L (0.7-1.2) mg/dl Glucose 117 H (70-105) mg/dL Calcium 8.0 L (8.6-10.4) mg/dl AST 15 (0-37) U/l ALT 17 (0-40) U/l Alkaline Phosphatase 110 (39-117) U/L Total Protein 5.5 L (5.9-8.4) gm/dL Albumin 2.4 L (3.2-5.2) gm/dL Triglycerides 143 (<150) mg/dl Calcium panel 03/26/19 Range/Units 04:35 Calcium 8.0 L (8.6-10.4) mg/dl Phosphorus 2.1 L (2.7-4.5) mg/dL Albumin 2.4 L (3.2-5.2) gm/dL Pituitary panel 03/26/19 Range/Units 04:35 Sodium 131 L (133-145) mmol/L Potassium 4.0 (3.3-5.1) mmol/L Chloride 98 (96-108) mmol/L Carbon Dioxide 23 (22-30) mmol/L BUN 17 (6-20) mg/dl Creatinine 0.5 L (0.7-1.2) mg/dl Glucose 117 H (70-105) mg/dL Calcium 8.0 L (8.6-10.4) mg/dl Adrenal panel 03/26/19 Range/Units 04:35 Sodium 131 L (133-145) mmol/L Potassium 4.0 (3.3-5.1) mmol/L Chloride 98 (96-108) mmol/L Carbon Dioxide 23 (22-30) mmol/L BUN 17 (6-20) mg/dl Creatinine 0.5 L (0.7-1.2) mg/dl Glucose 117 H (70-105) mg/dL Calcium 8.0 L (8.6-10.4) mg/dl Total Bilirubin 0.4 (0.0-1.0) mg/dL AST 15 (0-37) U/l ALT 17 (0-40) U/l Alkaline Phosphatase 110 (39-117) U/L Total Protein 5.5 L (5.9-8.4) gm/dL Albumin 2.4 L (3.2-5.2) gm/dL Assessment and Plan (1) Acute appendicitis with perforation and localized peritonitis Status: Acute Assessment and plan: Patient is clinically improved. He was given Reglan 10 mg IV every 6 hours for his hiccups. He'll be continued on antibiotics. MiraLAX 17 g in 8 ounces of liquid 3 times daily Current Visit: Yes - Time Spent With Patient Total time spent is greater than 50% in coordination of care (as documented) at patient's floor/unit and/or counseling patient:
[2019-03-26] MEDS ORDERED: LORazepam 2 MG/ML VIAL IV ONE (21:26)
[2019-03-27] MEDS: METOCLOPRAMIDE 10 MG/2 ML VIAL IV SCH ×2 (06:13→12:16)
[2019-03-27] MEDS: PIPERACILLIN SODIUM/TAZOBACTAM 3.375 GM in DEXTROSE 5% IN WATER 50 ML IV SCH ×3 (06:14→14:07)
[2019-03-27 06:30] LABS: Basophils # (Auto) 0 K/mcL (0.0-0.3); Basophils % (Auto) 0.3 % (0.0-2.0); Eosinophils # (Auto) 0.2 K/mcL (0.0-0.7); Granulocytes % (Auto) 82.1 % (38.0-78.0); Hematocrit 35.2 % (41.0-55.0); Hemoglobin 11.6 g/dL (13.5-16.5); Lymphocytes # (Auto) 2.4 K/mcL (1.5-4.8); Lymphocytes % (Auto) 12.8 % (15.5-49.0); Mean Cell Volume 93.3 fL (80.0-100.0); Mean Platelet Volume 7.2 fL (7.4-10.4); Monocytes # (Auto) 0.7 K/mcL (0.1-0.9); Monocytes % (Auto) 3.8 % (1.0-12.0); Platelet Count 394 K/mcL (140-440); RBC 3.78 M/mcL (4.50-5.90); Red Cell Distribution Width 12.9 % (11.5-14.5); WBC 18.8 K/mcL (4.5-11.0)
[2019-03-27 07:11] LABS: ALT/SGPT 20 U/l (0-40); AST/SGOT 19 U/l (0-37); Albumin 2.5 gm/dL (3.2-5.2); Albumin/Globulin Ratio 0.9 (1.0-2.3); Alkaline Phosphatase 70 U/L (39-117); Bilirubin,Direct < 0.2 mg/dL (0.0-0.3); Bilirubin,Total 0.2 mg/dL (0.0-1.0); Blood Urea Nitrogen 10 mg/dl (6-20); Carbon Dioxide 22 mmol/L (22-30); Chloride 97 mmol/L (96-108); Globulin 2.8 gm/dL (2.2-3.7); Glucose 104 mg/dL (70-105); Lactate Dehydrogenase 184 U/L (94-250); Triglycerides 144 mg/dl (<150)
[2019-03-27 07:15] LABS: Glomerular Filtration Rate 101; Phosphorous 2.2 mg/dL (2.7-4.5); Uric Acid 2.8 mg/dL (2.5-8.0)
[2019-03-27] MEDS ORDERED: POTASSIUM PHOSPHATE 40 MEQ in DEXTROSE 5% IN WATER 500 ML IV ONE (08:40)
[2019-03-27] MEDS: POLYETHYLENE GLYCOL 3350 17 GM PACKET PO SCH (09:12)
[2019-03-27] MEDS: POTASSIUM PHOSPHATE 40 MEQ in DEXTROSE 5% IN WATER 500 ML IV SCH ×2 (09:19→14:46)
--- NOTE | 2019-03-27 15:49 | Discharge Summary ---
Providers - Providers Patient information: Note initiated : 03/27/19 at 3:47 pm Service Date, if different from initiated Date: [] Patient: Cassius Haywood 53 y/o M admitted on 03/23/19 for Right upper Quad Pain. Chief Complaint: [] Date of admission: 03/23/19 Discharge date: 03/27/19 Attending physician: Nancy Rice Hospitalization Hospital Course: 3-year-old male admitted on 23 March with acute abdominal pain with nausea vomiting and leukocytosis. He had acute appendicitis with perforation and pelvic abscess. He underwent laparoscopic appendectomy with drainage of pelvic abscess on 23 March. He has gradually improved but his white blood count has been elevated. He also has had low-grade fever. His drainage is now serous. He does not have any purulent. He is tolerating diet and is stable for discharge. Discharge diagnosis: acute appendicitis with perforation Secondary discharge diagnosis: Appendiceal pelvic abscess Reason for admission: abdominal pain nausea vomiting and leukocytosis Procedures: Laparoscopic appendectomy with drainage of pelvic Abscess Pertinent studies/significant findings: CT of abdomen and pelvis with contrast Complications: None Exam Temp Pulse Resp BP Pulse Ox 99.0 F 91 H 18 129/84 96 03/27/19 12:00 03/27/19 12:00 03/27/19 12:00 03/27/19 12:00 03/27/19 12:00 - General physical appearance well developed, well nourished, no distress - Eyes PERRL, normal ocular movement - ENT normal pinna, normal nares, normal mucosa, no hearing loss, no congestion - Head Head exam IM: Present: atraumatic, normocephalic - Neck no masses, no bruits, trachea midline, no lymphadenopathy, no venous distension - Cardiovascular Cardiovascular exam IM: Present: normal rate and rhythm - Respiratory normal expansion, normal respiratory effort, clear to auscultation - Abdomen Abdomen: Present: soft, tender (mild tenderness around port sites otherwise benign abdomen; large-volume serous drainage), bowel sounds Hernia: Present: none - Genitourinary Present: normal penis with no external lesions - Integumentary Present: no rash, no growths, no abnormal pigmentation - Neurologic Present: normal coordination, normal sensation - Musculoskeletal Present: normal gait, normal posture - Psychiatric Present: oriented to time, oriented to person, oriented to place, speech is normal, memory intact Discharge Plan - Patient/Caregiver Discharge Instructions Activity: increase activity as tolerated Diet: Regular Diet Additional Instructions: Leave dressing in place until you return to the office If you need to have dressing change contact the office or contact the emergency room over the weekend Prescriptions: Ciprofloxacin [Cipro] 500 mg PO BID #40 tab [facility] [Flagyl] 500 mg PO Q8 #40 tab Transmission Status: Pending to [facility] - Follow up Plan Disposition: Home, Self-Care Prognosis: Good Rehab Potential: Good I certify that the patient requires SNF services.: No Overall status at discharge: patient is progressing back to baseline Pending Studies Resuscitation Status Full Code Diet Regular Diet Start TueMar 26 1017 Hydromorphone HCl (Dilaudid) 1 mg IV Q2HP PRN; Protocol PRN Reason: Per Pain Protocol Last Admin: 03/25/19 20:50 Dose: 1 mg Documented by: Admin: 03/25/19 15:04 Dose: 1 mg Documented by: Admin: 03/25/19 08:34 Dose: 1 mg Documented by: Admin: 03/25/19 00:09 Dose: 1 mg Documented by: Admin: 03/24/19 18:19 Dose: 1 mg Documented by: Admin: 03/24/19 11:48 Dose: 1 mg Documented by: [id number] Admin: 03/24/19 04:59 Dose: 1 mg Documented by: [email or web address] Piperacillin Sod/Tazobactam (Sod 3.375 gm/ Dextrose) 50 mls @ 100 mls/hr IV Q6H COTY; Protocol Last Admin: 03/27/19 14:07 Dose: 100 mls/hr Documented by: Admin: 03/27/19 12:43 Dose: Not Given Documented by: Infusion: 03/27/19 06:44 Dose: 100 mls/hr Documented by: Admin: 03/27/19 06:14 Dose: 100 mls/hr Documented by: Infusion: 03/27/19 00:27 Dose: 100 mls/hr Documented by: Admin: 03/26/19 23:57 Dose: 100 mls/hr Documented by: Infusion: 03/26/19 18:34 Dose: 100 mls/hr Documented by: Admin: 03/26/19 18:04 Dose: 100 mls/hr Documented by: Infusion: 03/26/19 12:08 Dose: 0 mls/hr Documented by: Admin: 03/26/19 11:38 Dose: 100 mls/hr Documented by: Infusion: 03/26/19 06:19 Dose: 100 mls/hr Documented by: Admin: 03/26/19 05:49 Dose: 100 mls/hr Documented by: Infusion: 03/25/19 23:41 Dose: 100 mls/hr Documented by: Admin: 03/25/19 23:11 Dose: 100 mls/hr Documented by: Infusion: 03/25/19 18:24 Dose: 100 mls/hr Documented by: Admin: 03/25/19 17:54 Dose: 100 mls/hr Documented by: Infusion: 03/25/19 12:30 Dose: 0 mls/hr Documented by: Admin: 03/25/19 11:48 Dose: 100 mls/hr Documented by: Infusion: 03/25/19 06:55 Dose: 0 mls/hr Documented by: Admin: 03/25/19 05:22 Dose: 100 mls/hr Documented by: Infusion: 03/25/19 00:41 Dose: 100 mls/hr Documented by: Admin: 03/25/19 00:11 Dose: 100 mls/hr Documented by: Infusion: 03/24/19 19:30 Dose: 100 mls/hr Documented by: Admin: 03/24/19 19:00 Dose: 100 mls/hr Documented by: Infusion: 03/24/19 12:40 Dose: 0 mls/hr Documented by: [email or web address] Admin: 03/24/19 12:00 Dose: 100 mls/hr Documented by: [email or web address] Infusion: 03/24/19 07:26 Dose: 0 mls/hr Documented by: [email or web address] Admin: 03/24/19 06:42 Dose: 100 mls/hr Documented by: [email or web address] Infusion: 03/24/19 01:53 Dose: 0 mls/hr Documented by: [email or web address] Admin: 03/24/19 01:23 Dose: 100 mls/hr Documented by: Infusion: 03/23/19 21:22 Dose: 100 mls/hr Documented by: Admin: 03/23/19 20:52 Dose: 100 mls/hr Documented by: [email or web address] Potassium Phosphate 40 meq/ (Dextrose) 509.0909 mls @ 127.273 mls/hr IV Q4H COTY Stop: 03/27/19 16:59 Last Admin: 03/27/19 14:46 Dose: 127.273 mls/hr Documented by: Infusion: 03/27/19 13:19 Dose: 127.273 mls/hr Documented by: Admin: 03/27/19 09:19 Dose: 127.273 mls/hr Documented by: [email or web address] Metoclopramide HCl (Reglan) 10 mg IV Q6 COTY Last Admin: 03/27/19 12:16 Dose: 10 mg Documented by: Admin: 03/27/19 06:13 Dose: 10 mg Documented by: Admin: 03/26/19 23:55 Dose: 10 mg Documented by: Admin: 03/26/19 18:04 Dose: 10 mg Documented by: Admin: 03/26/19 12:42 Dose: 10 mg Documented by: [email or web address] Admin: 03/26/19 05:50 Dose: 10 mg Documented by: Admin: 03/25/19 23:11 Dose: 10 mg Documented by: Admin: 03/25/19 17:53 Dose: 10 mg Documented by: Admin: 03/25/19 11:47 Dose: 10 mg Documented by: Admin: 03/25/19 05:22 Dose: 10 mg Documented by: Admin: 03/24/19 23:27 Dose: 10 mg Documented by: Admin: 03/24/19 17:22 Dose: 10 mg Documented by: Admin: 03/24/19 11:47 Dose: 10 mg Documented by: [id number] Polyethylene Glycol (Miralax) 17 gm PO DAILY COTY Last Admin: 03/27/19 09:12 Dose: 17 gm Documented by: Admin: 03/26/19 07:29 Dose: 17 gm Documented by: [email or web address] Promethazine HCl (Phenergan) 12.5 mg IV Q4HP PRN PRN Reason: Nausea And Vomiting Last Admin: 03/25/19 00:14 Dose: 12.5 mg Documented by: RAMU Shift Summary 03/27/19 05:26 Shift Summary by Rimma Ryan The patient is alert and oriented, using call light appropriately and up ad rock in his room using the toilet. Has denied pain 0/10, is receiving scheduled Zosyn and Reglan via IV to his left hand. He has incision sites with Tegaderm over radha CDI and 2 JEFF drain sites post operatively, tolerating a regular diet without nausea but still has hiccups. Will update at bedside, plan is to discharge to home later today but WBC is elevated and he was febrile prior. Initialized on 03/27/19 05:26 - END OF NOTE
--- NOTE | 2019-04-04 08:00 | Operative Note ---
DATE OF OPERATION: 03/23/2019 PREOPERATIVE DIAGNOSIS: Acute perforated appendicitis. POSTOPERATIVE DIAGNOSIS: Acute perforated appendicitis with abscess. PROCEDURE: Laparoscopic appendectomy with drainage of pelvic abscess. SURGEON: Nancy Rice MD FINDINGS: Abscess noted at the tip of the appendix where there was a perforation. There was also a perforation at the base with a periappendiceal abscess and purulent fluid in the pelvis. DESCRIPTION OF PROCEDURE: Under general anesthesia, the patient's abdomen was prepped and draped in a sterile field. Supraumbilical incision was made and Veress needle was inserted. Abdomen was insufflated with 3 liters of CO2. A 12 mm port was placed. Laparoscope was placed. Under videoscopic guidance, a 5 mm port was placed in the suprapubic midline and a 12 mm port in the left lower quadrant. The patient was placed in deep Trendelenburg position. The appendix was deeply embedded laterally along the lateral pelvic wall. A blunt dissection was carried out until the appendix was . There was a free perforation at the tip of the appendix and there was also a perforation at the base close to the cecum. The mesoappendix was grasped and was dissected. Inspection revealed that the inflammation extended into the base of the cecum and it was elected to transect the base of the cecum along with the specimen in order to get good viable healthy tissue. The mesoappendix and the base of the cecum were transected using three fires of the Endo JOSHUA stapler. The staple line was inspected and was intact without bleeding. Irrigation was carried out. The EndoCatch device was placed, and the appendix was removed. Copious irrigation of the pelvis was carried out and irrigation of the right gutter. A Tony drain was placed with one positioned in the pelvis and the other positioned in the right gutter. They were brought out through separate stab incisions. CO2 was allowed to escape from the abdomen and the ports were removed. Fascia at the umbilicus was closed with 0 Vicryl. Drain was secured with 2-0 nylon. The incisions were closed with radha on the skin. The patient tolerated the procedure well. Dressings were placed. He was awakened and transferred to a bed and taken to the postanesthetic care unit in stable, satisfactory condition. LCS:robinson Job ID: [id number] Doc ID: [id number] Nancy Rice M.D.
== END 2019-03-27 19:05 | disposition home or self-care (01) | DRG 340 ==
LOC: ED 17:38 → MEDSUR 17:38 → ED 23:42
PROVIDERS: ADMIT Family Medicine Adult Medicine; ATTEND Family Medicine Adult Medicine

== ENCOUNTER 2024-03-19 10:26 | Inpatient (IN) ==
[2024-03-19] MEDS ORDERED: IOPAMIDOL 100 ML BOTTLE IV ONE (10:27)
[2024-03-19] MEDS: 0.9 % SODIUM CHLORIDE 1,000 ML IV ONE (10:39)
[2024-03-19] MEDS: ONDANSETRON 4 MG/2 ML VIAL IV ONE (10:39)
[2024-03-19 11:10] LABS: Basophils # (Auto) 0.01 K/mcL (0.00-0.30); Basophils % (Auto) 0.1 % (0.0-2.0); Eosinophils # (Auto) 0 K/mcL (0.00-0.70); Eosinophils % (Auto) 0 % (0.0-7.0); Hematocrit 24.5 % (40.1-51.0); Hemoglobin 7.9 g/dL (13.7-17.5); Lymphocytes # (Auto) 2.02 K/mcL (1.50-4.80); Lymphocytes % (Auto) 10.4 % (15.5-49.0); Mean Cell Volume 91.8 fL (80.0-100.0); Mean Corpuscular HGB Conc 32.2 g/dL (31.0-36.0); Mean Platelet Volume 8.7 fL (8.8-12.5); Monocytes # (Auto) 0.83 K/mcL (0.10-0.90); Monocytes % (Auto) 4.3 % (1.0-12.0); Neutrophils % (Auto) 84.7 % (38.0-78.0); Platelet Count 478 K/mcL (140-440); RBC 2.67 M/mcL (4.63-6.08); Red Cell Distribution Width 12.4 % (11.5-14.5); WBC 19.5 K/mcL (4.5-11.0)
[2024-03-19] MEDS: PIPERACILLIN SODIUM/TAZOBACTAM 3.375 GM in DEXTROSE 5% IN WATER 50 ML IV ONE (11:33)
[2024-03-19 11:40] LABS: ALT/SGPT 18 U/L (<40); AST/SGOT 12 U/L (<40); Albumin 3.5 gm/dL (3.2-5.2); Albumin/Globulin Ratio 1.3 (1.0-2.3); Alkaline Phosphatase 69 U/L (39-117); Bilirubin,Total < 0.2 mg/dL (0.1-1.0); Blood Urea Nitrogen 52 mg/dL (6-20); Calcium 8.8 mg/dL (8.6-10.4); Carbon Dioxide 28 mmol/L (22-30); Chloride 90 mmol/L (96-108); Globulin 2.7 gm/dL (2.2-3.7); Glomerular Filtration Rate 93; Glucose 142 mg/dL (70-105); Potassium 3.3 mmol/L (3.3-5.1); Sodium 131 mmol/L (133-145)
[2024-03-19] MEDS: LACTATED RINGERS 1,000 ML IV ONE (13:52)
[2024-03-19] MEDS: PANTOPRAZOLE 40 MG VIAL IV ONE (13:53)
[2024-03-19] MEDS ORDERED: KETAMINE 50 MG/ML ML IV PRN (14:36)
[2024-03-19] MEDS: PROPOFOL 200 MG/20 ML VIAL IV SCH (15:04)
[2024-03-19] MEDS: MIDAZOLAM 2 MG/2 ML VIAL IV SCH (15:04)
[2024-03-19 15:10] LABS: Hematocrit 20.4 % (40.1-51.0); Hemoglobin 6.6 g/dL (13.7-17.5)
[2024-03-19 16:20] LABS: Appearance,Urine Clear (Clear); Bilirubin,Urine Negative (Negative); Color,Urine Yellow; Glucose,Urine (UA) Negative (Negative); Ketones,Urine Negative (Negative); Leukocyte Esterase,Urine Negative /uL (Negative); Nitrate,Urine Negative (Negative); Protein,Urine Negative (Negative); Specific Gravity,Urine 1.015 (1.000-1.035); Urine Blood Negative ery/mcL (Negative); Urine RBC 0 /hpf (0-3); Urine Squamous Epithelial Cell < 1 /hpf (0-4); Urine WBC 1 /hpf (0-4); Urobilinogen,Urine Normal
[2024-03-19] MEDS ORDERED: CAPSAICIN 0.025% CREAM.TOP 60GM TOPICAL PRN (17:01)
[2024-03-19] MEDS ORDERED: SENNOSIDES 1 TABLET PO PRN (17:02)
[2024-03-19] MEDS ORDERED: ONDANSETRON 4 MG/2 ML VIAL IV PRN (17:02)
[2024-03-19] MEDS: 0.9 % SODIUM CHLORIDE 250 ML IV SCH ×2 (17:25→22:20)
[2024-03-19] MEDS: ONDANSETRON 4 MG/2 ML VIAL IV SCH (17:45)
[2024-03-19] MEDS: FLEETS ADULT 1 DOSE ENEMA PR SCH (17:45)
[2024-03-19] MEDS: diphenhydrAMINE 50 MG/ML VIAL IV SCH (17:45)
[2024-03-19] MEDS: SODIUM CHLORIDE 154 MEQ in WATER FOR INJECTION,STERILE 961.5 ML IV SCH (18:16)
[2024-03-19] MEDS: PANTOPRAZOLE 40 MG VIAL IV SCH (22:19)
[2024-03-19] MEDS: 0.9 % SODIUM CHLORIDE 10 ML SYRINGE IV SCH (22:20)
[2024-03-19 22:37] LABS: Hematocrit 23.9 % (40.1-51.0); Hemoglobin 7.7 g/dL (13.7-17.5)
[2024-03-20] MEDS: MAGNESIUM CITRATE 300 ML ORAL.SOL PO SCH (01:00)
[2024-03-20 01:24] LABS: Hematocrit 23.4 % (40.1-51.0); Hemoglobin 7.7 g/dL (13.7-17.5)
[2024-03-20 06:38] LABS: Basophils # (Auto) 0.02 K/mcL (0.00-0.30); Basophils % (Auto) 0.1 % (0.0-2.0); Eosinophils # (Auto) 0.03 K/mcL (0.00-0.70); Eosinophils % (Auto) 0.2 % (0.0-7.0); Hematocrit 23.4 % (40.1-51.0); Hemoglobin 7.6 g/dL (13.7-17.5); Lymphocytes # (Auto) 3.53 K/mcL (1.50-4.80); Lymphocytes % (Auto) 24.9 % (15.5-49.0); Mean Cell Volume 91.1 fL (80.0-100.0); Mean Corpuscular HGB Conc 32.5 g/dL (31.0-36.0); Monocytes # (Auto) 0.63 K/mcL (0.10-0.90); Monocytes % (Auto) 4.4 % (1.0-12.0); Platelet Count 352 K/mcL (140-440); RBC 2.57 M/mcL (4.63-6.08); Red Cell Distribution Width 13.7 % (11.5-14.5); WBC 14.2 K/mcL (4.5-11.0)
[2024-03-20 06:57] LABS: C-Reactive Protein 1.19 mg/dL (0.03-0.80)
[2024-03-20 07:04] LABS: ALT/SGPT 15 U/L (<40); AST/SGOT 14 U/L (<40); Albumin 2.9 gm/dL (3.2-5.2); Albumin/Globulin Ratio 1.4 (1.0-2.3); Alkaline Phosphatase 56 U/L (39-117); Bilirubin,Total 0.4 mg/dL (0.1-1.0); Blood Urea Nitrogen 21 mg/dL (6-20); Calcium 8.3 mg/dL (8.6-10.4); Carbon Dioxide 25 mmol/L (22-30); Chloride 105 mmol/L (96-108); Globulin 2.1 gm/dL (2.2-3.7); Glomerular Filtration Rate 97; Glucose 85 mg/dL (70-105); Potassium 3.4 mmol/L (3.3-5.1); Sodium 139 mmol/L (133-145)
[2024-03-20] MEDS: 0.9 % SODIUM CHLORIDE 250 ML IV SCH (08:02)
[2024-03-20 13:07] LABS: Lymphocytes % 23 % (15-49); Monocytes % (Manual) 3 % (1-12); Platelet Estimate NORMAL (Normal); RBC Morphology NORMAL (Normal); Segmented Neutrophils % 74 % (38-78)
[2024-03-21 06:43] LABS: Basophils # (Auto) 0.02 K/mcL (0.00-0.30); Basophils % (Auto) 0.2 % (0.0-2.0); Eosinophils # (Auto) 0.09 K/mcL (0.00-0.70); Eosinophils % (Auto) 0.9 % (0.0-7.0); Hematocrit 26.2 % (40.1-51.0); Hemoglobin 8.5 g/dL (13.7-17.5); Lymphocytes # (Auto) 2.83 K/mcL (1.50-4.80); Lymphocytes % (Auto) 27.8 % (15.5-49.0); Mean Cell Volume 91.3 fL (80.0-100.0); Mean Corpuscular HGB Conc 32.4 g/dL (31.0-36.0); Monocytes # (Auto) 0.62 K/mcL (0.10-0.90); Monocytes % (Auto) 6.1 % (1.0-12.0); Neutrophils % (Auto) 64.5 % (38.0-78.0); Platelet Count 268 K/mcL (140-440); RBC 2.87 M/mcL (4.63-6.08); Red Cell Distribution Width 13.8 % (11.5-14.5); WBC 10.2 K/mcL (4.5-11.0)
[2024-03-21 07:10] LABS: ALT/SGPT 18 U/L (<40); AST/SGOT 16 U/L (<40); Albumin 2.9 gm/dL (3.2-5.2); Albumin/Globulin Ratio 1.3 (1.0-2.3); Alkaline Phosphatase 56 U/L (39-117); Bilirubin,Direct < 0.2 mg/dL (0-0.3); Bilirubin,Total < 0.2 mg/dL (0.1-1.0); Blood Urea Nitrogen 16 mg/dL (6-20); Calcium 8.3 mg/dL (8.6-10.4); Carbon Dioxide 25 mmol/L (22-30); Chloride 103 mmol/L (96-108); Globulin 2.2 gm/dL (2.2-3.7); Glomerular Filtration Rate 103; Glucose 101 mg/dL (70-105); Lactate Dehydrogenase 118 U/L (135-225); Phosphorous 2.1 mg/dL (2.5-4.5); Potassium 3.7 mmol/L (3.3-5.1); Sodium 137 mmol/L (133-145); Triglycerides 71 mg/dL (<150); Uric Acid 3.1 mg/dL (2.5-8.0)
[2024-03-21] MEDS: PANTOPRAZOLE 40 MG TABLET PO SCH (16:15)
[2024-03-22 06:57] LABS: Basophils # (Auto) 0.02 K/mcL (0.00-0.30); Basophils % (Auto) 0.2 % (0.0-2.0); Eosinophils # (Auto) 0.14 K/mcL (0.00-0.70); Eosinophils % (Auto) 1.5 % (0.0-7.0); Hematocrit 26.6 % (40.1-51.0); Hemoglobin 8.5 g/dL (13.7-17.5); Lymphocytes # (Auto) 2.75 K/mcL (1.50-4.80); Lymphocytes % (Auto) 28.6 % (15.5-49.0); Mean Cell Volume 91.7 fL (80.0-100.0); Monocytes # (Auto) 0.64 K/mcL (0.10-0.90); Monocytes % (Auto) 6.7 % (1.0-12.0); Neutrophils % (Auto) 62.4 % (38.0-78.0); Platelet Count 371 K/mcL (140-440); Red Cell Distribution Width 13.3 % (11.5-14.5); WBC 9.6 K/mcL (4.5-11.0)
== END 2024-03-22 11:58 | disposition home or self-care (01) | DRG 369 ==
LOC: ED 10:26 → SUR 14:50 → ICU 15:50 → SUR 15:55
PROVIDERS: ADMIT Student in an Organized Health Care Education/Training Program; ATTEND Internal Medicine

== ENCOUNTER 2024-07-28 19:10 | Inpatient (IN) ==
[2024-07-28] MEDS ORDERED: IOPAMIDOL 100 ML BOTTLE IV ONE (19:11)
[2024-07-28] MEDS: ONDANSETRON 4 MG/2 ML VIAL IV ONE (19:34)
[2024-07-28 20:10] LABS: ALT/SGPT 20 U/L (<40); AST/SGOT 20 U/L (<40); Albumin 4.3 gm/dL (3.2-5.2); Albumin/Globulin Ratio 1.3 (1.0-2.3); Alkaline Phosphatase 87 U/L (39-117); Bilirubin,Total < 0.2 mg/dL (0.1-1.0); Blood Urea Nitrogen 25 mg/dL (6-20); Calcium 9.8 mg/dL (8.6-10.4); Carbon Dioxide 20 mmol/L (22-30); Chloride 102 mmol/L (96-108); Globulin 3.4 gm/dL (2.2-3.7); Glomerular Filtration Rate 97; Glucose 113 mg/dL (70-105); Potassium 3.6 mmol/L (3.3-5.1); Sodium 141 mmol/L (133-145)
[2024-07-28 20:13] LABS: Basophils # (Auto) 0.03 K/mcL (0.00-0.30); Basophils % (Auto) 0.2 % (0.0-2.0); Eosinophils # (Auto) 0.02 K/mcL (0.00-0.70); Eosinophils % (Auto) 0.2 % (0.0-7.0); Hematocrit 24.3 % (40.1-51.0); Hemoglobin 6.8 g/dL (13.7-17.5); Lymphocytes # (Auto) 2.55 K/mcL (1.50-4.80); Lymphocytes % (Auto) 21.1 % (15.5-49.0); Mean Platelet Volume 8.5 fL (8.8-12.5); Monocytes # (Auto) 0.59 K/mcL (0.10-0.90); Monocytes % (Auto) 4.9 % (1.0-12.0); Neutrophils % (Auto) 73.4 % (38.0-78.0); Platelet Count 600 K/mcL (140-440); RBC 3.47 M/mcL (4.63-6.08); Red Cell Distribution Width 18.1 % (11.5-14.5); WBC 12.1 K/mcL (4.5-11.0)
[2024-07-28] MEDS: LACTATED RINGERS 1,000 ML IV ONE (20:45)
[2024-07-28] MEDS: PANTOPRAZOLE 40 MG VIAL IV ONE (20:45)
[2024-07-28] MEDS: 0.9 % SODIUM CHLORIDE 250 ML IV SCH (20:49)
[2024-07-28] MEDS: PIPERACILLIN SODIUM/TAZOBACTAM 3.375 GM in DEXTROSE 5% IN WATER 50 ML IV ONE (20:49)
[2024-07-28 20:53] LABS: Appearance,Urine Slightly Cloudy (Clear); Bacteria,Urine 0 /hpf (0); Bilirubin,Urine Negative (Negative); Color,Urine Yellow; Glucose,Urine (UA) Negative (Negative); Ketones,Urine Negative (Negative); Leukocyte Esterase,Urine Trace /uL (Negative); Mucus,Urine Few /hpf; Nitrate,Urine Negative (Negative); Protein,Urine 30 mg/dL (Negative); Specific Gravity,Urine >= 1.030 (1.000-1.035); Urine Blood Trace-intact ery/mcL (Negative); Urine RBC 1 /hpf (0-3); Urine Squamous Epithelial Cell 0 /hpf (0-4); Urine WBC 86 /hpf (0-4); Urobilinogen,Urine Normal
[2024-07-28] MEDS: fentaNYL 100 MCG/2 ML VIAL IV PRN (22:45)
[2024-07-28] MEDS: ONDANSETRON 4 MG/2 ML VIAL IV PRN (22:46)
[2024-07-28 23:09] LABS: Amphetamine Screen,Urine Suspect positive; Barbiturate Screen,Urine None detected; Benzodiazepines Screen,Urine None detected; Cannabinoid Screen,Urine Suspect Positive; Cocaine Screen,Urine None detected; Fentanyl, Urine Screen None Detected; Opiate Screen,Urine None detected; Oxycodone, Urine Screen None detected; Phencyclidine Screen,Urine None detected
[2024-07-28] MEDS: 0.9 % SODIUM CHLORIDE 1,000 ML IV SCH (23:40)
[2024-07-28] MEDS: ACETAMINOPHEN 1,000 MG/100 ML BAG IV SCH (23:49)
[2024-07-28] MEDS: METOCLOPRAMIDE 10 MG/2 ML VIAL IV SCH (23:51)
[2024-07-29] MEDS: 0.9 % SODIUM CHLORIDE 250 ML IV SCH (00:49)
[2024-07-29 06:23] LABS: ALT/SGPT 18 U/L (<40); AST/SGOT 19 U/L (<40); Albumin 4.2 gm/dL (3.2-5.2); Albumin/Globulin Ratio 1.6 (1.0-2.3); Alkaline Phosphatase 83 U/L (39-117); Bilirubin,Direct < 0.2 mg/dL (0-0.3); Bilirubin,Total 0.4 mg/dL (0.1-1.0); Blood Urea Nitrogen 24 mg/dL (6-20); Carbon Dioxide 21 mmol/L (22-30); Chloride 104 mmol/L (96-108); Globulin 2.7 gm/dL (2.2-3.7); Glomerular Filtration Rate 103; Glucose 131 mg/dL (70-105); Lactate Dehydrogenase 193 U/L (135-225); Phosphorous 3.8 mg/dL (2.5-4.5); Potassium 3.7 mmol/L (3.3-5.1); Sodium 138 mmol/L (133-145); Triglycerides 48 mg/dL (<150); Uric Acid 4.7 mg/dL (2.5-8.0)
[2024-07-29] MEDS: PANTOPRAZOLE 40 MG VIAL IV SCH (07:38)
[2024-07-29] MEDS ORDERED: IOPAMIDOL 100 ML BOTTLE IV ONE (07:43)
[2024-07-29] MEDS: HEPARIN 5,000 UNIT/ML VIAL IV ONE (08:06)
[2024-07-29] MEDS: HEPARIN SOD,PORK IN 0.45% NACL 500 ML IV SCH (08:07)
[2024-07-29 09:24] LABS: Basophils # (Auto) 0.01 K/mcL (0.00-0.30); Basophils % (Auto) 0.1 % (0.0-2.0); Eosinophils # (Auto) 0 K/mcL (0.00-0.70); Eosinophils % (Auto) 0 % (0.0-7.0); Hemoglobin 8.8 g/dL (13.7-17.5); Lymphocytes # (Auto) 1.19 K/mcL (1.50-4.80); Lymphocytes % (Auto) 9.5 % (15.5-49.0); Mean Cell Volume 71.8 fL (80.0-100.0); Mean Corpuscular HGB Conc 30.3 g/dL (31.0-36.0); Mean Platelet Volume 8.4 fL (8.8-12.5); Monocytes # (Auto) 0.45 K/mcL (0.10-0.90); Monocytes % (Auto) 3.6 % (1.0-12.0); Neutrophils % (Auto) 86.6 % (38.0-78.0); Platelet Count 514 K/mcL (140-440); RBC 4.04 M/mcL (4.63-6.08); Red Cell Distribution Width 17.9 % (11.5-14.5); WBC 12.6 K/mcL (4.5-11.0)
[2024-07-29] MEDS: HEPARIN 5,000 UNIT/ML VIAL IV PRN (15:46)
[2024-07-30] MEDS: HEPARIN 5,000 UNIT/ML VIAL IV PRN (04:53)
[2024-07-30 06:03] LABS: Basophils # (Auto) 0.02 K/mcL (0.00-0.30); Basophils % (Auto) 0.1 % (0.0-2.0); Eosinophils # (Auto) 0 K/mcL (0.00-0.70); Eosinophils % (Auto) 0 % (0.0-7.0); Hematocrit 25.6 % (40.1-51.0); Hemoglobin 7.6 g/dL (13.7-17.5); Lymphocytes # (Auto) 1.67 K/mcL (1.50-4.80); Lymphocytes % (Auto) 11.7 % (15.5-49.0); Mean Cell Volume 74.4 fL (80.0-100.0); Mean Corpuscular HGB Conc 29.7 g/dL (31.0-36.0); Monocytes # (Auto) 0.68 K/mcL (0.10-0.90); Monocytes % (Auto) 4.8 % (1.0-12.0); Neutrophils % (Auto) 83.3 % (38.0-78.0); Platelet Count 422 K/mcL (140-440); RBC 3.44 M/mcL (4.63-6.08); Red Cell Distribution Width 18.3 % (11.5-14.5); WBC 14.3 K/mcL (4.5-11.0)
[2024-07-30 06:13] LABS: ALT/SGPT 13 U/L (<40); AST/SGOT 18 U/L (<40); Albumin 3.2 gm/dL (3.2-5.2); Albumin/Globulin Ratio 1.5 (1.0-2.3); Alkaline Phosphatase 62 U/L (39-117); Bilirubin,Direct < 0.2 mg/dL (0-0.3); Bilirubin,Total 0.3 mg/dL (0.1-1.0); Blood Urea Nitrogen 22 mg/dL (6-20); Calcium 7.4 mg/dL (8.6-10.4); Carbon Dioxide 19 mmol/L (22-30); Chloride 110 mmol/L (96-108); Globulin 2.2 gm/dL (2.2-3.7); Glomerular Filtration Rate 109; Glucose 74 mg/dL (70-105); Lactate Dehydrogenase 183 U/L (135-225); Phosphorous 2.9 mg/dL (2.5-4.5); Potassium 3.2 mmol/L (3.3-5.1); Sodium 141 mmol/L (133-145); Triglycerides 57 mg/dL (<150); Uric Acid 4.3 mg/dL (2.5-8.0)
[2024-07-30] MEDS: POTASSIUM CHLORIDE 10 MEQ/100 ML BAG IV SCH ×2 (09:19→13:45)
[2024-07-30] MEDS: PYRIDOSTIGMINE BROMIDE 10 MG/2 ML AMPUL IV SCH (13:44)
[2024-07-30] MEDS: 0.9 % SODIUM CHLORIDE 250 ML IV SCH ×2 (16:08→19:54)
[2024-07-30] MEDS: 0.9 % SODIUM CHLORIDE 10 ML SYRINGE IV SCH (21:10)
[2024-07-31] MEDS: HEPARIN 5,000 UNIT/ML VIAL IV PRN (01:35)
[2024-07-31 07:01] LABS: Basophils # (Auto) 0.01 K/mcL (0.00-0.30); Basophils % (Auto) 0.1 % (0.0-2.0); Eosinophils # (Auto) 0.01 K/mcL (0.00-0.70); Eosinophils % (Auto) 0.1 % (0.0-7.0); Hematocrit 35.3 % (40.1-51.0); Hemoglobin 10.9 g/dL (13.7-17.5); Lymphocytes # (Auto) 1.59 K/mcL (1.50-4.80); Lymphocytes % (Auto) 10.8 % (15.5-49.0); Mean Cell Volume 76.4 fL (80.0-100.0); Mean Corpuscular HGB Conc 30.9 g/dL (31.0-36.0); Mean Platelet Volume 8.7 fL (8.8-12.5); Monocytes # (Auto) 0.68 K/mcL (0.10-0.90); Monocytes % (Auto) 4.6 % (1.0-12.0); Neutrophils % (Auto) 84.2 % (38.0-78.0); Platelet Count 377 K/mcL (140-440); RBC 4.62 M/mcL (4.63-6.08); Red Cell Distribution Width 19.1 % (11.5-14.5); WBC 14.7 K/mcL (4.5-11.0)
[2024-07-31 07:05] LABS: ALT/SGPT 13 U/L (<40); AST/SGOT 20 U/L (<40); Albumin 2.5 gm/dL (3.2-5.2); Albumin/Globulin Ratio 0.9 (1.0-2.3); Alkaline Phosphatase 69 U/L (39-117); Bilirubin,Direct < 0.2 mg/dL (0-0.3); Bilirubin,Total 0.3 mg/dL (0.1-1.0); Blood Urea Nitrogen 17 mg/dL (6-20); Calcium 7.6 mg/dL (8.6-10.4); Carbon Dioxide 17 mmol/L (22-30); Chloride 105 mmol/L (96-108); Globulin 2.8 gm/dL (2.2-3.7); Glomerular Filtration Rate 118; Glucose 43 mg/dL (70-105); Lactate Dehydrogenase 157 U/L (135-225); Phosphorous 1.8 mg/dL (2.5-4.5); Potassium 3.5 mmol/L (3.3-5.1); Sodium 134 mmol/L (133-145); Triglycerides 87 mg/dL (<150); Uric Acid 3.8 mg/dL (2.5-8.0)
[2024-07-31] MEDS ORDERED: DEXTROSE 5%-1/2NS W/10MEQ KCL 1,000 ML IV SCH (08:30)
[2024-07-31] MEDS: POTASSIUM PHOSPHATE 40 MEQ in DEXTROSE 5% IN WATER 500 ML IV ONE (09:06)
[2024-07-31] MEDS: SODIUM BICARBONATE 650 MG TABLET PO SCH (09:07)
[2024-07-31] MEDS: DEXTROSE 5%-1/2NS W/10MEQ KCL 1,000 ML IV ONE (09:37)
[2024-07-31 15:21] LABS: Anisocytosis 1+ (None Seen); Band Neutrophils % 3 % (0-10); Eosinophils % (Manual) 1 % (0-7); Hypochromasia 1+ (None Seen); Lymphocytes % 7 % (15-49); Microcytosis 2+ (None Seen); Monocytes % (Manual) 3 % (1-12); Ovalocytes 1+ (None Seen); Platelet Estimate NORMAL (Normal); RBC Morphology ABNORMAL (Normal); Segmented Neutrophils % 86 % (38-78)
[2024-08-01 06:47] LABS: Basophils # (Auto) 0.01 K/mcL (0.00-0.30); Basophils % (Auto) 0.1 % (0.0-2.0); Eosinophils # (Auto) 0.02 K/mcL (0.00-0.70); Eosinophils % (Auto) 0.1 % (0.0-7.0); Hematocrit 34.9 % (40.1-51.0); Hemoglobin 10.8 g/dL (13.7-17.5); Lymphocytes # (Auto) 1.68 K/mcL (1.50-4.80); Lymphocytes % (Auto) 12.5 % (15.5-49.0); Mean Cell Volume 75.7 fL (80.0-100.0); Mean Corpuscular HGB Conc 30.9 g/dL (31.0-36.0); Mean Platelet Volume 9.3 fL (8.8-12.5); Monocytes # (Auto) 0.61 K/mcL (0.10-0.90); Monocytes % (Auto) 4.5 % (1.0-12.0); Neutrophils % (Auto) 82.4 % (38.0-78.0); Platelet Count 397 K/mcL (140-440); RBC 4.61 M/mcL (4.63-6.08); Red Cell Distribution Width 19.6 % (11.5-14.5); WBC 13.5 K/mcL (4.5-11.0)
[2024-08-01 07:06] LABS: ALT/SGPT 13 U/L (<40); AST/SGOT 21 U/L (<40); Albumin 2.5 gm/dL (3.2-5.2); Albumin/Globulin Ratio 0.8 (1.0-2.3); Alkaline Phosphatase 76 U/L (39-117); Bilirubin,Direct < 0.2 mg/dL (0-0.3); Bilirubin,Total 0.3 mg/dL (0.1-1.0); Blood Urea Nitrogen 12 mg/dL (6-20); Calcium 7.8 mg/dL (8.6-10.4); Carbon Dioxide 18 mmol/L (22-30); Chloride 101 mmol/L (96-108); Glomerular Filtration Rate 109; Glucose 140 mg/dL (70-105); Lactate Dehydrogenase 197 U/L (135-225); Phosphorous 0.8 mg/dL (2.5-4.5); Potassium 3.9 mmol/L (3.3-5.1); Sodium 132 mmol/L (133-145); Triglycerides 166 mg/dL (<150)
[2024-08-01 08:27] LABS: Anti-XA-UFH 0.18 IU/mL (0.30-0.60)
[2024-08-01] MEDS: SODIUM BICARBONATE 650 MG TABLET PO SCH (08:52)
[2024-08-01] MEDS: NEUTRA PHOS 1 PACKET PO SCH (08:52)
[2024-08-01] MEDS: PHOSPHORUS 250 MG TABLET PO SCH (08:56)
[2024-08-01] MEDS: SODIUM PHOSPHATE 30 MMOL in DEXTROSE 5% IN WATER 500 ML IV ONE (09:08)
[2024-08-02 06:24] LABS: ALT/SGPT 10 U/L (<40); AST/SGOT 15 U/L (<40); Albumin 2.2 gm/dL (3.2-5.2); Albumin/Globulin Ratio 0.8 (1.0-2.3); Alkaline Phosphatase 65 U/L (39-117); Bilirubin,Direct < 0.2 mg/dL (0-0.3); Bilirubin,Total 0.3 mg/dL (0.1-1.0); Blood Urea Nitrogen 7 mg/dL (6-20); Calcium 6.8 mg/dL (8.6-10.4); Carbon Dioxide 18 mmol/L (22-30); Chloride 98 mmol/L (96-108); Globulin 2.7 gm/dL (2.2-3.7); Glomerular Filtration Rate 129; Glucose 86 mg/dL (70-105); Lactate Dehydrogenase 147 U/L (135-225); Phosphorous 1.4 mg/dL (2.5-4.5); Potassium 3.3 mmol/L (3.3-5.1); Sodium 128 mmol/L (133-145); Triglycerides 113 mg/dL (<150); Uric Acid 2.3 mg/dL (2.5-8.0)
[2024-08-02] MEDS: 0.9 % SODIUM CHLORIDE 1,000 ML IV ONE (11:23)
[2024-08-02] MEDS: POTASSIUM PHOSPHATE 40 MEQ in DEXTROSE 5% IN WATER 500 ML IV ONE (11:24)
[2024-08-03 05:37] LABS: Basophils # (Auto) 0 K/mcL (0.00-0.30); Basophils % (Auto) 0 % (0.0-2.0); Eosinophils # (Auto) 0.05 K/mcL (0.00-0.70); Eosinophils % (Auto) 0.5 % (0.0-7.0); Hematocrit 33.6 % (40.1-51.0); Hemoglobin 10.5 g/dL (13.7-17.5); Lymphocytes # (Auto) 2.01 K/mcL (1.50-4.80); Lymphocytes % (Auto) 18.3 % (15.5-49.0); Mean Corpuscular HGB Conc 31.3 g/dL (31.0-36.0); Monocytes # (Auto) 0.86 K/mcL (0.10-0.90); Monocytes % (Auto) 7.8 % (1.0-12.0); Neutrophils % (Auto) 72.9 % (38.0-78.0); Platelet Count 402 K/mcL (140-440); RBC 4.48 M/mcL (4.63-6.08); Red Cell Distribution Width 20.6 % (11.5-14.5)
[2024-08-03 05:55] LABS: ALT/SGPT 12 U/L (<40); AST/SGOT 14 U/L (<40); Albumin 2.4 gm/dL (3.2-5.2); Albumin/Globulin Ratio 0.7 (1.0-2.3); Alkaline Phosphatase 87 U/L (39-117); Bilirubin,Direct < 0.2 mg/dL (0-0.3); Bilirubin,Total 0.3 mg/dL (0.1-1.0); Blood Urea Nitrogen 8 mg/dL (6-20); Calcium 7.2 mg/dL (8.6-10.4); Carbon Dioxide 23 mmol/L (22-30); Chloride 101 mmol/L (96-108); Globulin 3.5 gm/dL (2.2-3.7); Glomerular Filtration Rate 118; Glucose 84 mg/dL (70-105); Lactate Dehydrogenase 153 U/L (135-225); Phosphorous 1.8 mg/dL (2.5-4.5); Potassium 3.6 mmol/L (3.3-5.1); Sodium 134 mmol/L (133-145); Triglycerides 114 mg/dL (<150); Uric Acid 2.2 mg/dL (2.5-8.0)
[2024-08-03] MEDS: MAGNESIUM SULFATE 1 GM/100 ML BAG IV ONE (07:59)
[2024-08-03] MEDS: POTASSIUM PHOSPHATE 40 MEQ in DEXTROSE 5% IN WATER 500 ML IV ONE (08:21)
[2024-08-03 09:05] LABS: Iron 9 ug/dL (61-157); TIBC Calculation 199 ug/dl (228-428); Transferrin % Saturation 5 % (20-50)
[2024-08-04 05:51] LABS: Basophils # (Auto) 0.01 K/mcL (0.00-0.30); Basophils % (Auto) 0.1 % (0.0-2.0); Eosinophils # (Auto) 0.02 K/mcL (0.00-0.70); Eosinophils % (Auto) 0.1 % (0.0-7.0); Hematocrit 31.9 % (40.1-51.0); Hemoglobin 9.9 g/dL (13.7-17.5); Lymphocytes # (Auto) 1.86 K/mcL (1.50-4.80); Lymphocytes % (Auto) 12.1 % (15.5-49.0); Mean Cell Volume 75.6 fL (80.0-100.0); Mean Platelet Volume 9.2 fL (8.8-12.5); Monocytes # (Auto) 0.91 K/mcL (0.10-0.90); Monocytes % (Auto) 5.9 % (1.0-12.0); Neutrophils % (Auto) 81.2 % (38.0-78.0); Platelet Count 405 K/mcL (140-440); RBC 4.22 M/mcL (4.63-6.08); Red Cell Distribution Width 21.2 % (11.5-14.5); WBC 15.4 K/mcL (4.5-11.0)
[2024-08-04 05:59] LABS: ALT/SGPT 12 U/L (<40); AST/SGOT 12 U/L (<40); Albumin 2.2 gm/dL (3.2-5.2); Albumin/Globulin Ratio 0.8 (1.0-2.3); Alkaline Phosphatase 82 U/L (39-117); Bilirubin,Direct < 0.2 mg/dL (0-0.3); Bilirubin,Total < 0.2 mg/dL (0.1-1.0); Blood Urea Nitrogen 8 mg/dL (6-20); Calcium 7.7 mg/dL (8.6-10.4); Carbon Dioxide 24 mmol/L (22-30); Chloride 101 mmol/L (96-108); Globulin 2.8 gm/dL (2.2-3.7); Glomerular Filtration Rate 129; Glucose 99 mg/dL (70-105); Lactate Dehydrogenase 210 U/L (135-225); Potassium 3.6 mmol/L (3.3-5.1); Sodium 134 mmol/L (133-145); Triglycerides 91 mg/dL (<150); Uric Acid 2.3 mg/dL (2.5-8.0)
[2024-08-04] MEDS ORDERED: fentaNYL 100 MCG/2 ML VIAL ONE (08:59)
[2024-08-04] MEDS ORDERED: KETAMINE 50 MG/ML Syringe IV ONE (08:59)
[2024-08-04] MEDS ORDERED: MIDAZOLAM 2 MG/2 ML VIAL ONE (08:59)
[2024-08-04] MEDS: VITAMIN D3 125 MCG TABLET PO SCH (10:07)
[2024-08-04] MEDS: PANTOPRAZOLE 40 MG TABLET PO SCH ×2 (10:24→16:08)
[2024-08-04] MEDS: FLUCONAZOLE 100 MG TABLET PO ONE (11:51)
[2024-08-04] MEDS: NEUTRA PHOS 1 PACKET PO SCH (21:20)
[2024-08-05] MEDS ORDERED: METOCLOPRAMIDE 10 MG/2 ML VIAL IV SCH (08:45)
[2024-08-05] MEDS ORDERED: APIXABAN 5 MG TABLET PO SCH (09:00)
[2024-08-05] MEDS: ENOXAPARIN 60 MG/0.6 ML SYRINGE SQ SCH (09:15)
[2024-08-05] MEDS: FLUCONAZOLE 100 MG TABLET PO SCH (09:15)
[2024-08-05 12:33] LABS: Estimated Average Glucose(eAG) 105 mg/dL; Hemoglobin A1C 5.3 % Hgb (4.0-6.0)
[2024-08-05] MEDS: WARFARIN 3 MG TABLET PO SCH (14:28)
[2024-08-06 05:53] LABS: Basophils # (Auto) 0.01 K/mcL (0.00-0.30); Basophils % (Auto) 0.1 % (0.0-2.0); Eosinophils # (Auto) 0.02 K/mcL (0.00-0.70); Eosinophils % (Auto) 0.1 % (0.0-7.0); Hematocrit 32.5 % (40.1-51.0); Hemoglobin 10.1 g/dL (13.7-17.5); Lymphocytes # (Auto) 1.44 K/mcL (1.50-4.80); Lymphocytes % (Auto) 10.1 % (15.5-49.0); Mean Cell Volume 75.1 fL (80.0-100.0); Mean Corpuscular HGB Conc 31.1 g/dL (31.0-36.0); Mean Platelet Volume 8.8 fL (8.8-12.5); Monocytes # (Auto) 0.82 K/mcL (0.10-0.90); Monocytes % (Auto) 5.8 % (1.0-12.0); Neutrophils % (Auto) 83.3 % (38.0-78.0); Platelet Count 519 K/mcL (140-440); RBC 4.33 M/mcL (4.63-6.08); Red Cell Distribution Width 22.2 % (11.5-14.5); WBC 14.2 K/mcL (4.5-11.0)
[2024-08-06 06:01] LABS: ALT/SGPT 8 U/L (<40); AST/SGOT 12 U/L (<40); Albumin 2.2 gm/dL (3.2-5.2); Albumin/Globulin Ratio 0.6 (1.0-2.3); Alkaline Phosphatase 87 U/L (39-117); Bilirubin,Direct < 0.2 mg/dL (0-0.3); Bilirubin,Total 0.2 mg/dL (0.1-1.0); Blood Urea Nitrogen 8 mg/dL (6-20); Calcium 7.9 mg/dL (8.6-10.4); Carbon Dioxide 25 mmol/L (22-30); Chloride 99 mmol/L (96-108); Globulin 3.5 gm/dL (2.2-3.7); Glomerular Filtration Rate 129; Glucose 100 mg/dL (70-105); Lactate Dehydrogenase 308 U/L (135-225); Phosphorous 2.8 mg/dL (2.5-4.5); Potassium 3.4 mmol/L (3.3-5.1); Sodium 133 mmol/L (133-145); Triglycerides 107 mg/dL (<150); Uric Acid 2.4 mg/dL (2.5-8.0)
[2024-08-06 06:22] LABS: INR 1.2 (0.9-1.1); Prothrombin Time 15.8 sec (11.9-14.5)
[2024-08-07 05:51] LABS: Basophils # (Auto) 0.01 K/mcL (0.00-0.30); Basophils % (Auto) 0 % (0.0-2.0); Eosinophils # (Auto) 0 K/mcL (0.00-0.70); Eosinophils % (Auto) 0 % (0.0-7.0); Hemoglobin 9.9 g/dL (13.7-17.5); Mean Cell Volume 74.8 fL (80.0-100.0); Mean Corpuscular HGB Conc 30.9 g/dL (31.0-36.0); Mean Platelet Volume 9.3 fL (8.8-12.5); Monocytes # (Auto) 1.43 K/mcL (0.10-0.90); Monocytes % (Auto) 5.7 % (1.0-12.0); Neutrophils % (Auto) 87.9 % (38.0-78.0); Platelet Count 514 K/mcL (140-440); RBC 4.28 M/mcL (4.63-6.08); Red Cell Distribution Width 22.3 % (11.5-14.5); WBC 25.1 K/mcL (4.5-11.0)
[2024-08-07 06:36] LABS: INR 1.4 (0.9-1.1); Prothrombin Time 18.4 sec (11.9-14.5)
[2024-08-07 07:09] LABS: Amphetamine Screen Positive
[2024-08-07] MEDS ORDERED: IOPAMIDOL 100 ML BOTTLE IV ONE (09:44)
[2024-08-07] MEDS: PIPERACILLIN SODIUM/TAZOBACTAM 4.5 GM in DEXTROSE 5% IN WATER 50 ML IV SCH (12:27)
[2024-08-07] MEDS ORDERED: PIPERACILLIN SODIUM/TAZOBACTAM 4.5 GM in DEXTROSE 5% IN WATER 100 ML IV SCH (16:00)
[2024-08-07] MEDS ORDERED: PROPOFOL 200 MG/20 ML VIAL IV ONE (16:34)
[2024-08-07] MEDS ORDERED: GLYCOPYRROLATE 0.2 MG/ML VIAL IV ONE (16:34)
[2024-08-07] MEDS ORDERED: LIDOCAINE 2% PF 5 ML VIAL IJ ONE (16:34)
[2024-08-07 18:42] VITALS: TEMP 99.9; O2SAT 92
== END 2024-08-07 16:35 | disposition short-term general hospital (02) | DRG 896 ==
LOC: ED 19:10 → MEDSUR 23:00
PROVIDERS: ADMIT Family Medicine Adult Medicine; ATTEND Family Medicine Adult Medicine